=== PATIENT | male | born 1970 | race Caucasian/White ===

== ENCOUNTER 2022-02-02 00:26 | Emergency (ER) | payer BC ==
[~2022-02-02] VITALS: Ht 177.8 cm; Wt 90.7 kg
[2022-02-02 00:35] VITALS: BP_SYST 133
[2022-02-02] MEDS ORDERED: KETOROLAC TROMETHAMINE 60 MG/2 ML VIAL IM ONE (02:30)
[2022-02-02] MEDS ORDERED: IBUP-1969 PO (03:24)
[2022-02-02] MEDS ORDERED: METH-634 PO (03:24)
[2022-02-02 03:51] VITALS: BP_SYST 130
== END 2022-02-02 03:51 | disposition home or self-care (01) ==
LOC: SED 00:26
DX: S46.812A Strain of other muscles, fascia and tendons at shoulder and upper arm level, left arm, initial encounter (principal); Z79.899 Other long term (current) drug therapy; X58.XXXA Exposure to other specified factors, initial encounter; Y93.89 Activity, other specified; Y92.89 Other specified places as the place of occurrence of the external cause; Y99.8 Other external cause status
CPT/HCPCS: 99283; 72040; 96372; J1885

== ENCOUNTER 2022-11-15 08:36 | Emergency (ER) | payer BC, OTHER ==
[~2022-11-15] VITALS: Ht 175.3 cm; Wt 93.0 kg
[~2022-11-15 08:36] MED LIST: IBUP-1969 PO; METH-634 PO
[2022-11-15 08:47] VITALS: BP_SYST 116; PULSE 86; RESP 18; TEMP 98.3; O2SAT 98
[2022-11-15] MEDS ORDERED: IBUP-1971 PO (08:57)
[2022-11-15] MEDS ORDERED: HYDR-3927 PO (08:57)
[2022-11-15] MEDS ORDERED: HYDROcodone/ACETAMIN 10-325 MG TAB PO ONE (09:00)
[2022-11-15] MEDS ORDERED: KETOROLAC TROMETHAMINE 60 MG/2 ML VIAL IM ONE (09:00)
[2022-11-15] MEDS ORDERED: MORPHINE 4 MG INJ. 4 MG/ML VIAL IM ONE (10:30)
[2022-11-15 10:46] VITALS: BP_SYST 120; PULSE 80; RESP 15; O2SAT 94
== END 2022-11-15 10:47 | disposition home or self-care (01) ==
LOC: SED 08:36
DX: G89.29 Other chronic pain (principal); M54.50 Low back pain, unspecified; Z79.899 Other long term (current) drug therapy
CPT/HCPCS: 99284; 96372; J1885; J2270

== ENCOUNTER 2023-01-20 20:27 | Emergency (ER) | payer BC, OTHER ==
[~2023-01-20] VITALS: Ht 175.3 cm; Wt 94.3 kg
[~2023-01-20 20:27] MED LIST changes: +HYDR-3927 PO; +IBUP-1971 PO
[2023-01-20 21:12] VITALS: BP_SYST 123; PULSE 127; RESP 25; TEMP 97.8; O2SAT 96
== END 2023-01-20 22:09 | disposition left against medical advice (07) ==
LOC: SED 20:27
DX: R07.9 Chest pain, unspecified (principal); R06.02 Shortness of breath; Z53.21 Procedure and treatment not carried out due to patient leaving prior to being seen by health care provider
CPT/HCPCS: 99281